=== PATIENT | female | born 1970 | race Caucasian/White ===

== ENCOUNTER 2017-12-18 15:55 | Outpatient (CLI) | payer BC | END 2017-12-18 15:56 | disposition home or self-care (01) | LOC: BICMAMMO 15:55 | PROVIDERS: ATTEND Obstetrics & Gynecology | DX: Z12.31 Encounter for screening mammogram for malignant neoplasm of breast (principal) | CPT/HCPCS: 77063; 77067 ==

== ENCOUNTER 2018-05-12 07:17 | Outpatient (CLI) | payer BC ==
--- NOTE | 2018-05-12 10:07 | ULT ---
RIGHT UPPER QUADRANT ULTRASOUND: HISTORY: Right upper quadrant pain and elevated LFTs. FINDINGS: The liver demonstrates homogeneous echotexture without focal mass or intrahepatic ductal dilatation. The gallbladder is contracted with shadowing gallstones. No gallbladder wall thickening or perichol ecystic fluid is seen. The common duct measures 2 mm in diameter. The right kidney and pancreas are normal. No free fluid is seen in the Morison's pouch. IMPRESSION: Cholelithiasis. POS: LAURIEH
== END 2018-05-12 07:18 | disposition home or self-care (01) ==
LOC: ULT 07:17
PROVIDERS: ATTEND Internal Medicine Gastroenterology
DX: R94.5 Abnormal results of liver function studies (principal); K80.20 Calculus of gallbladder without cholecystitis without obstruction
CPT/HCPCS: 76705

== ENCOUNTER 2018-05-13 12:45 | Day surgery (SDC) | payer BC ==
[~2018-05-13 12:45] MED LIST: Dexamethasone 20 MG/5 ML VIAL ONE; Glycopyrrolate 0.2 MG/ML 5 ML SYRINGE ONE; Ketorolac Tromethamine 30 MG/ML VIAL ONE; Lidocaine 1% PF 5 ML VIAL ONE; Ondansetron PF 4 MG/2 ML Vial ONE; PROPOFOL 200 MG/20 ML VIAL ONE; Succinylcholine Chloride 20 MG/ML 10 ml SYRINGE FS ONE
[2018-05-13 14:26] LABS: #Basophils 0.1 thou/uL (0.0-0.2); #Eosinphils 0.1 thou/uL (0.0-0.7); #Lymphocytes 1.5 thou/uL (1.20-3.40); #Monocytes 0.3 thou/uL (0.11-0.59); #Neutrophils 3.1 thou/uL (1.40-6.50); %Basophils 1.2 % (0.0-1.0); %Eosinophils 2.4 % (0.0-10.0); %Lymphocytes 29.4 % (21.0-51.0); %Monocytes 6.4 % (0.0-10.0); %Neutrophils 60.6 % (42.0-75.0); Hemoglobin 13.7 g/dL (12.0-16.0); Mean Corpuscular HGB CONC 32.1 g/dL (32.0-36.0); Mean Corpuscular Hemoglobin 30.2 pg (27.0-31.0); Mean Corpuscular Volume 93.8 fL (78.0-98.0); Mean Platelet Volume 9.8 fL (7.4-10.4); Platelet Count 241 thou/uL (130-400); RBC Distribution Width 11.7 % (11.5-14.5); Red Blood Cell (RBC) Count 4.54 mill/uL (4.20-5.40); White Blood Cell (WBC) Count 5.2 thou/uL (4.8-10.8)
[2018-05-13] MEDS ORDERED: cefOXitin 2 GM in Sodium Chloride 0.9% 100 ML IVPB SCH (14:45)
[2018-05-13 14:48] LABS: ALT (SGPT) 448 U/L (8-55); AST (SGOT) 256 U/L (5-34); Alkaline Phosphatase 127 U/L (40-150); Anion Gap 16 mmol/L (10-20); BUN (Urea Nitrogen) 10 mg/dL (7.0-18.7); Bilirubin, Direct 1.2 mg/dL (0.1-0.3); Bilirubin, Total 1.8 mg/dL (0.2-1.2); Calc. Creatinine Clearance 0 mL/min (70-130); Calcium 10.1 mg/dL (7.8-10.44); Carbon Dioxide 28 mmol/L (22-29); Chloride 101 mmol/L (98-107); Estimated GFR-MDRD 71; Glucose 92 mg/dL (70-105); Potassium 3.7 mmol/L (3.5-5.1); Protein, Total 8.4 g/dL (6.0-8.3); Sodium 141 mmol/L (136-145)
[2018-05-13] MEDS ORDERED: Bupivacaine/Epinephrine 0.25% 30 ML VIAL ONE (15:10)
[2018-05-13] MEDS ORDERED: Bupivacaine HCl 0.5%/Epinephrine 1:200,000/PF 30 ml Vial ONE (15:10)
[2018-05-13] MEDS ORDERED: Iothalamate Meglumine 60% 50 ML VIAL FS ONE (15:11)
[2018-05-13] MEDS ORDERED: Fentanyl 100 MCG/2 ML VIAL ONE ×3 (15:37→17:18)
[2018-05-13] MEDS ORDERED: HYDROmorphone 2 MG/ML VIAL ONE (17:28)
[2018-05-13] MEDS ORDERED: Promethazine HCl 25 MG/ML VIAL ONE (18:35)
[2018-05-13] MEDS ORDERED: Sodium Chloride 0.9% 10 ML ONE (18:35)
[2018-05-13] MEDS ORDERED: HYDROcodone/Acetaminophen 5/325 mg Tablet ONE ×2 (19:06→19:55)
--- NOTE | 2018-05-13 21:14 | RAD ---
INTRAOPERATIVE CHOLANGIOGRAM 05/13/18 EXPOSURE: 46.2 seconds. 7.24 mGy. FINDINGS: There appears to be canalization of the cystic duct. Contrast appears to opacify normal appearing int ra and extrahepatic biliary system. Contrast is noted in the small bowel. There is a well circumscri bed hypodensity in the left upper quadrant which is of uncertain etiology. IMPRESSION: Fluoroscopy as above. POS: ASAF
--- NOTE | 2018-06-17 12:59 | OP ---
DATE OF PROCEDURE: 05/13/2018 PREOPERATIVE DIAGNOSIS: Symptomatic gallstones with history of elevated liver function tests. POSTOPERATIVE DIAGNOSIS: Symptomatic gallstones with history of elevated liver function tests. PROCEDURES PERFORMED: 1. Laparoscopic cholecystectomy with intraoperative cholangiogram. 2. Percutaneous liver biopsy. ANESTHESIA: General. ESTIMATED BLOOD LOSS: Minimal. COMPLICATIONS: None. SPECIMENS REMOVED: Liver biopsy core and gallbladder. FINDINGS: Normal cholangiogram. DESCRIPTION OF PROCEDURE: The patient was taken to the operating room and laid supine on the operating room table. After general anesthetic was obtained, the abdomen was prepped and draped in a sterile fashion. A curved incision was made below the umbilicus. Cautery was used to dissect down the fascia. The abdominal cavity was then bluntly entered using a Ayse clamp side of the fascia. Wu trocar was placed. High-flow pneumoperitoneum was obtained. An upper midline 5 mm port and 2 right upper quadrant 5 mm ports were placed under direct visualization. The gallbladder was retracted from the gallbladder fossa. The peritoneum was opened anteriorly and posteriorly. The critical view triangle was seen showing only the cystic duct and cystic artery branching from medial to lateral, no other branching structures. A clip was placed on the cystic duct. A small ductotomy was made just proximal to that. A cholangiocatheter was brought in through a separate stab incision, placed in the cystic duct and a cholangiogram was performed, which shows good contrast flow into the duodenum, right and left hepatic duct system without obstruction. The cystic artery was taken using two clips proximally, one clip distally, and cut using laparoscopic scissors. The cystic duck was taken using two clips proximally, one clip distally, and cut using laparoscopic scissors. Gallbladder was dissected out at the gallbladder fossa using cautery. Gallbladder was placed in an EndoCatch bag and brought out through the Wu. All port sites were infiltrated using local anesthetic. Percutaneous liver biopsy was performed in three good cores of tissue. Meticulous hemostasis obtained at the liver edge using cautery. Port sites were infiltrated using local anesthetic. All ports were removed under camera visualization. Pneumoperitoneum was let down. PDS used to close the fascial defect below the umbilicus. All incisions were irrigated and closed using 4-0 Monocryl and Dermabond. The patient was sent to Recovery Room in stable condition. All sponge counts, needle counts, and lap counts are correct. Job ID: [id number]
== END 2018-05-13 19:56 | disposition home or self-care (01) ==
LOC: SDC 12:45
PROVIDERS: ATTEND Surgery
PROC: 0FT44ZZ Resection of Gallbladder, Percutaneous Endoscopic Approach (ICD-10-PCS; principal; 2018-05-13)
PROC: 0FB03ZX Excision of Liver, Percutaneous Approach, Diagnostic (ICD-10-PCS; principal; 2018-05-13)
PROC: BF121ZZ Fluoroscopy of Gallbladder using Low Osmolar Contrast (ICD-10-PCS; principal; 2018-05-13)
DX: K80.12 Calculus of gallbladder with acute and chronic cholecystitis without obstruction (principal)
CPT/HCPCS: 47532; 80048; 80076; 82150; 85025; 88304; 88307; 88313; 96374; 96375; J0670; J0694; J1100; J1170; J1885; J2001; J2405; J2550; J2704; J3010; J7050; Q9961

== ENCOUNTER 2018-12-22 16:04 | Outpatient (CLI) | payer BC ==
--- NOTE | 2018-12-22 16:32 | MMO ---
Bilateral MAMMO Bilat Screen [facility]. CLINICAL HISTORY: Patient is 48 years old and is seen for screening. The patient has no family history of breast cancer. The patient has no personal history of cancer. VIEWS: The views performed were: bilateral craniocaudal with tomosynthesis and bilateral mediolateral oblique with tomosynthesis. FILMS COMPARED: The present examination has been compared to prior imaging studies performed at [facility] on 11/14/2016 and 12/18/2017, and at [facility] on 08/05/2014 and 08/10/2015. MAMMOGRAM FINDINGS: The breasts are heterogeneously dense, which could obscure a lesion on mammography. There are no suspicious masses, calcifications or areas of architectural distortion. There are benign appearing calcifications in both breasts. There are no suspicious masses, suspicious calcifications, or new areas of architectural distortion. IMPRESSION: THERE IS NO MAMMOGRAPHIC EVIDENCE OF MALIGNANCY. A ROUTINE FOLLOW-UP MAMMOGRAM IN 1 YEAR IS RECOMMENDED. THE RESULTS OF THIS EXAM WERE SENT TO THE PATIENT. ACR BI-RADS Category 2 - Benign finding MAMMOGRAPHY NOTE: 1. A negative mammogram report should not delay a biopsy if a dominant of clinically suspicious mass is present. 2. Approximately 10% to 15% of breast cancers are not detected by mammography. 3. Adenosis and dense breasts may obscure an underlying neoplasm.
== END 2018-12-22 16:05 | disposition home or self-care (01) ==
LOC: BICMAMMO 16:04
PROVIDERS: ATTEND Obstetrics & Gynecology
DX: Z12.31 Encounter for screening mammogram for malignant neoplasm of breast (principal)
CPT/HCPCS: 77063; 77067

== ENCOUNTER 2022-05-23 17:30 | Outpatient (CLI) | payer BC, SELFPAY | END 2022-05-23 17:31 | disposition home or self-care (01) | LOC: SLEEPLAB 17:30 | PROVIDERS: ATTEND Family Medicine | DX: G47.33 Obstructive sleep apnea (adult) (pediatric) (principal); G47.9 Sleep disorder, unspecified; R51.9 Headache, unspecified; R06.83 Snoring; F41.9 Anxiety disorder, unspecified; G47.00 Insomnia, unspecified | CPT/HCPCS: 95800 ==

== ENCOUNTER 2022-07-25 19:30 | Outpatient (CLI) | payer BC | END 2022-07-25 19:31 | disposition home or self-care (01) | LOC: SLEEPLAB 19:30 | PROVIDERS: ATTEND Internal Medicine Cardiovascular Disease | DX: G47.33 Obstructive sleep apnea (adult) (pediatric) (principal); G47.9 Sleep disorder, unspecified; R51.9 Headache, unspecified; R06.83 Snoring; F41.9 Anxiety disorder, unspecified; G47.00 Insomnia, unspecified; G47.10 Hypersomnia, unspecified | CPT/HCPCS: 95810 ==